=== PATIENT | male | born 2005 ===

== ENCOUNTER 2023-02-22 09:56 | Day surgery (SDC) | payer OTHER ==
[2023-02-22] MEDS ORDERED: Sodium Chloride 0.9% 100 ML ONE (11:19)
[2023-02-22] MEDS ORDERED: cefOXitin 2 GM VIAL ONE (11:19)
[2023-02-22] MEDS ORDERED: EPINEPHrine 1 MG/ML AMP ONE (11:29)
[2023-02-22] MEDS ORDERED: Iopamidol 30 ML ONE (11:29)
[2023-02-22] MEDS ORDERED: Bupivacaine 0.25% HCL 30 ML VIAL ONE (11:29)
[2023-02-22] MEDS ORDERED: fentaNYL PF 100 MCG/2 ML SYRINGE ONE (11:34)
[2023-02-22] MEDS ORDERED: Glucagon 1 MG/ML KIT ONE (11:51)
[2023-02-22] MEDS ORDERED: PROPOFOL 200 MG/20 ML VIAL ONE (11:53)
[2023-02-22] MEDS ORDERED: Glycopyrrolate 0.2 MG/ML 5 ML SYRINGE ONE (11:53)
[2023-02-22] MEDS ORDERED: NEOSTIGMINE 3 MG/3 ML SYR 3 MG/3 ML SYRINGE ONE (11:53)
[2023-02-22] MEDS ORDERED: Dexamethasone 20 MG/5 ML VIAL ONE (11:53)
[2023-02-22] MEDS ORDERED: Ondansetron PF 4 MG/2 ML Vial ONE (11:53)
[2023-02-22] MEDS ORDERED: Rocuronium Bromide 10 MG/ML (10ML VIAL) ONE (11:53)
[2023-02-22] MEDS ORDERED: HYDROcodone/Acetaminophen 5/325 mg Tablet ONE (13:59)
== END 2023-02-22 15:45 | disposition home or self-care (01) ==
LOC: SDC 09:56
PROVIDERS: ATTEND Family Medicine
PROC: BF03YZZ Plain Radiography of Gallbladder and Bile Ducts using Other Contrast (ICD-10-PCS; principal; 2023-02-22)
PROC: 0FT44ZZ Resection of Gallbladder, Percutaneous Endoscopic Approach (ICD-10-PCS; principal; 2023-02-22)
DX: K80.12 Calculus of gallbladder with acute and chronic cholecystitis without obstruction (principal); Z79.899 Other long term (current) drug therapy
CPT/HCPCS: 47531; 47532; 87070; 87205; 88304; C1889; J0171; J0694; J1100; J1611; J2405; J2704; J3490; Q9967; S0020